=== PATIENT | male | born 1970 | race Caucasian/White ===

== ENCOUNTER 2016-07-28 10:30 | Outpatient (CLI) ==
[2014-03-03 06:36] VITALS: BMI 23.7
[2016-07-28 10:47] LABS: BASOPHILS % (AUTO) 0.1 % (0.0-3.0); EOSINOPHILS # (AUTO) 0.1 K/ul (0.0-0.7); EOSINOPHILS % (AUTO) 0.4 % (0.0-7.0); HEMOGLOBIN 16.9 g/dl (14.0-18.0); IMMATURE GRANULOCYTE % (AUTO) 0.3 % (0.0-5.0); LYMPHOCYTES # (AUTO) 0.6 K/uL (0.60-3.4); LYMPHOCYTES % (AUTO) 4.7 (10.0-50.0); MEAN CORPUSCULAR HEMOGLOBIN 28.5 pg (27.0-31.0); MEAN CORPUSCULAR HGB CONC 33.1 (31.8-35.4); MONOCYTES # (AUTO) 0.7 K/uL (0.4-2.0); MONOCYTES % (AUTO) 5.7 (0-10); NEUTROPHILS % (AUTO) 88.8; PLATELET COUNT 194 10^3/uL (140-440); RED BLOOD COUNT 5.93 10^6/ul (4.70-6.10); WHITE BLOOD COUNT 12.39 K/ul (4.2-10.2)
[2016-07-28 10:53] LABS: BILIRUBIN,URINE 1+ (NEGATIVE); KETONES,URINE Trace (NEGATIVE); LEUKOCYTE ESTERASE ,URINE Negative (NEGATIVE); NITRITE,URINE Negative (NEGATIVE); PH,URINE 5.5 (5-9); PROTEIN,URINE 1+ (NEGATIVE); URINE, BLOOD Trace-lysed (NEGATIVE)
[2016-07-28 11:02] LABS: ADD URINE MICROSCOPIC YES
[2016-07-28 11:03] LABS: BACTERIA,URINE TRACE (NOT PRESENT)
[2016-07-28 11:07] LABS: ALBUMIN 4.2 g/dL (3.4-5.0); ALBUMIN/GLOBULIN RATIO 1.45; ANION GAP 14.1; BILIRUBIN,TOTAL 1.04 mg/dL (0.00-1.20); BUN/CREATININE RATIO 15.38; CALCIUM 9.4 mg/dL (8.2-10.2); CREATININE 1.04 mg/dL (0.60-1.10); POTASSIUM 4.1 mmol/L (3.5-5.1); TOTAL PROTEIN 7.1 g/dL (6.4-8.2)
== END 2016-07-28 10:31 | disposition home or self-care (01) ==
LOC: LAB 10:30
PROVIDERS: ATTEND General Practice
DX: R00.0 Tachycardia, unspecified (principal); F41.9 Anxiety disorder, unspecified; R53.83 Other fatigue; Z79.899 Other long term (current) drug therapy
CPT/HCPCS: 36415; 80053; 81001; 84443; 85025; 93005; 93010

== ENCOUNTER 2017-02-24 16:23 | Outpatient (CLI) ==
[2014-03-03 06:36] VITALS: BMI 23.7
== END 2017-02-24 16:24 | disposition home or self-care (01) ==
LOC: LAB 16:23
PROVIDERS: ATTEND General Practice
DX: F11.90 Opioid use, unspecified, uncomplicated (principal)
CPT/HCPCS: 36415; 82542

== ENCOUNTER 2017-03-24 16:20 | Outpatient (CLI) ==
[2014-03-03 06:36] VITALS: BMI 23.7
[2017-03-24 16:36] LABS: BILIRUBIN,URINE Negative (NEGATIVE); KETONES,URINE Negative (NEGATIVE); LEUKOCYTE ESTERASE ,URINE Negative (NEGATIVE); NITRITE,URINE Negative (NEGATIVE); PH,URINE 5.5 (5-9); PROTEIN,URINE Negative (NEGATIVE); URINE, BLOOD Trace-lysed (NEGATIVE)
[2017-03-24 16:37] LABS: ADD URINE MICROSCOPIC YES
== END 2017-03-24 16:21 | disposition home or self-care (01) ==
LOC: LAB 16:20
PROVIDERS: ATTEND General Practice
DX: I10 Essential (primary) hypertension (principal); F11.90 Opioid use, unspecified, uncomplicated; Z79.899 Other long term (current) drug therapy
CPT/HCPCS: 36415; 81001; 82542

== ENCOUNTER 2017-04-14 13:03 | Outpatient (CLI) ==
[2014-03-03 06:36] VITALS: BMI 23.7
[2017-04-14 13:33] LABS: BASOPHILS % (AUTO) 0.6 % (0.0-3.0); EOSINOPHILS # (AUTO) 0.2 K/ul (0.0-0.7); EOSINOPHILS % (AUTO) 2.6 % (0.0-7.0); HEMATOCRIT 43.5 % (42.0-52.0); IMMATURE GRANULOCYTE % (AUTO) 0.2 % (0.0-5.0); LYMPHOCYTES # (AUTO) 3.1 K/uL (0.60-3.4); LYMPHOCYTES % (AUTO) 47.1 (10.0-50.0); MEAN CORPUSCULAR HEMOGLOBIN 29.9 pg (27.0-31.0); MEAN CORPUSCULAR HGB CONC 34.5 (31.8-35.4); MEAN CORPUSCULAR VOLUME 86.8 fl (80.0-94.0); MONOCYTES # (AUTO) 0.8 K/uL (0.4-2.0); MONOCYTES % (AUTO) 12.8 (0-10); NEUTROPHILS # (AUTO) 2.4 K/ul (2.0-6.9); NEUTROPHILS % (AUTO) 36.7; PLATELET COUNT 182 10^3/uL (140-440); RED BLOOD COUNT 5.01 10^6/ul (4.70-6.10)
[2017-04-14 13:50] LABS: ALBUMIN 3.8 g/dL (3.4-5.0); ALBUMIN/GLOBULIN RATIO 1.31; ANION GAP 12.9; BILIRUBIN,TOTAL 0.48 mg/dL (0.00-1.20); CALCIUM 9.6 mg/dL (8.2-10.2); POTASSIUM 4.9 mmol/L (3.5-5.1); TOTAL PROTEIN 6.7 g/dL (6.4-8.2)
[2017-04-14 13:51] LABS: BUN/CREATININE RATIO 15.62; CHOL/HDL RATIO 3.1 (4.5-6.4); CREATININE 0.96 mg/dL (0.60-1.10)
== END 2017-04-14 13:04 | disposition home or self-care (01) ==
LOC: LAB 13:03
PROVIDERS: ATTEND General Practice
DX: F11.20 Opioid dependence, uncomplicated (principal); F11.90 Opioid use, unspecified, uncomplicated; I10 Essential (primary) hypertension; Z79.899 Other long term (current) drug therapy
CPT/HCPCS: 36415; 80053; 80061; 82542; 85025

== ENCOUNTER 2017-05-05 12:39 | Outpatient (CLI) ==
[2014-03-03 06:36] VITALS: BMI 23.7
== END 2017-05-05 12:40 | disposition home or self-care (01) ==
LOC: LAB 12:39
PROVIDERS: ATTEND General Practice
DX: F11.20 Opioid dependence, uncomplicated (principal); F11.90 Opioid use, unspecified, uncomplicated; Z79.899 Other long term (current) drug therapy
CPT/HCPCS: 36415; 82542

== ENCOUNTER 2017-11-23 15:40 | Outpatient (CLI) ==
[2014-03-03 06:36] VITALS: BMI 23.7
== END 2017-11-23 15:41 | disposition home or self-care (01) ==
LOC: RHC-LAB 15:40
PROVIDERS: ATTEND General Practice
DX: R42 Dizziness and giddiness (principal); H53.9 Unspecified visual disturbance
CPT/HCPCS: 36415; 80053; 80061; 85025

== ENCOUNTER 2018-12-26 16:12 | Outpatient (CLI) ==
[2014-03-03 06:36] VITALS: BMI 23.7
== END 2018-12-26 16:13 | disposition home or self-care (01) ==
LOC: RHC-LAB 16:12
PROVIDERS: ATTEND General Practice
DX: Z00.00 Encounter for general adult medical examination without abnormal findings (principal); Z87.448 Personal history of other diseases of urinary system
CPT/HCPCS: 82272

== ENCOUNTER 2019-03-15 13:33 | Outpatient (CLI) | payer OTHER ==
[2014-03-03 06:36] VITALS: BMI 23.7
== END 2019-03-15 13:34 | disposition home or self-care (01) ==
LOC: RHC-LAB 13:33
PROVIDERS: ATTEND General Practice
DX: Z79.899 Other long term (current) drug therapy (principal)
CPT/HCPCS: 80306